=== PATIENT | male | born 1970 | race Caucasian/White ===

== ENCOUNTER 2017-05-25 19:02 | Emergency (ER) | payer OTHER, BC ==
[2017-05-25 19:15] VITALS: BP 106/73
[2017-05-25] MEDS ORDERED: OXYCODONE-ACETAMINOPHEN 5-325 MG TABLET PO ONE (19:24)
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
[2017-05-25] MEDS ORDERED: HYDROCODONE/ACETAMINOPHEN 5-325 MG 6 TAB/DSPK PO PRN (20:13)
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
--- NOTE | 2017-05-27 09:59 | RADIOLOGY REPORT (SQ) ---
EXAM DESCRIPTION: KNEE RIGHT 4 VIEWS COMPLETED DATE/TIME: 05/25/2017 7:43 pm REASON FOR STUDY: pain COMPARISON: 01/05/2008 NUMBER OF VIEWS: Four views. TECHNIQUE: AP, lateral, and both oblique radiographic images acquired of the right knee. LIMITATIONS: None. FINDINGS: MINERALIZATION: Normal. BONES: No acute fracture or dislocation. No worrisome bone lesions. No significant osteophytes. JOINT: No effusion. No chondrocalcinosis. OTHER: No other significant finding. IMPRESSION: NEGATIVE STUDY OF THE RIGHT KNEE. NO EXPLANATION FOR PAIN. TECHNICAL DOCUMENTATION: JOB ID: [id number] [employer]- All Rights Reserved
--- NOTE | 2017-05-27 14:02 | RADIOLOGY REPORT (SQ) ---
EXAM DESCRIPTION: HAND LEFT 3 VIEWS COMPLETED DATE/TIME: 05/25/2017 7:43 pm REASON FOR STUDY: injury COMPARISON: None. EXAM PARAMETERS: NUMBER OF VIEWS: Three views. TECHNIQUE: AP, lateral and oblique radiographic images acquired of the left hand. LIMITATIONS: None. FINDINGS: MINERALIZATION: Normal. BONES: No acute fracture or dislocation. No worrisome bone lesions. JOINTS: No effusions. SOFT TISSUES: No soft tissue swelling. No foreign body. OTHER: No other significant finding. IMPRESSION: NEGATIVE STUDY OF THE LEFT HAND. NO RADIOGRAPHIC EVIDENCE OF ACUTE INJURY. TECHNICAL DOCUMENTATION: JOB ID: [id number] [employer]- All Rights Reserved
--- NOTE | 2017-05-27 16:37 | RADIOLOGY REPORT (SQ) ---
EXAM DESCRIPTION: KNEE LEFT 4 VIEW COMPLETED DATE/TIME: 05/25/2017 7:43 pm REASON FOR STUDY: injury COMPARISON: None. FINDINGS: Four views left knee. Irregular lucency through the inferior pole of the patella consistent with nondisplaced mildly commin uted fracture. Overlying soft tissue swelling. Small joint effusion. No other fracture identified. Please see separately dictated report for right knee radiographs obtained on same date; patient tong hallman had left greater than right knee pain. TECHNICAL DOCUMENTATION: JOB ID: [id number]
== END 2017-05-25 21:00 | disposition home or self-care (01) ==
LOC: ER 19:02
DX: S82.045A Nondisplaced comminuted fracture of left patella, initial encounter for closed fracture (principal); T14.8 Other injury of unspecified body region; V23.4XXA Motorcycle driver injured in collision with car, pick-up truck or van in traffic accident, initial encounter; Y92.488 Other paved roadways as the place of occurrence of the external cause; F17.200 Nicotine dependence, unspecified, uncomplicated
CPT/HCPCS: 99283; 73130; 73562; 73564; L1830

== ENCOUNTER 2018-11-15 13:30 | Observation (INO) | payer BC ==
[2018-11-15] MEDS ORDERED: IPRATROPIUM/ALBUTEROL 0.5-2.5 MG/3 ML AMPUL NEB ONE (15:48)
[2018-11-15] MEDS ORDERED: ONDANSETRON HCL INJ/PF 4 MG/2 ML SDV IV ONE (15:49)
[2018-11-15] MEDS ORDERED: METHYLPREDNISOLONE INJ 125 MG/2 ML SDV IV ONE (15:49)
[2018-11-15] MEDS ORDERED: DOXYCYCLINE HYCLATE INJ 100 MG VIAL IV ONE ×2 (15:59→19:30)
--- NOTE | 2018-11-15 16:02 | ER Document Report ---
ED Medical Screen (RME) - General Chief Complaint: Abscess Stated Complaint: POSSIBLE ABSCESS Time Seen by Provider: 11/15/18 15:48 Notes: Patient is a 48-year-old male that presents to the emergency department for chief complaint of left knee abscess. Patient states this started as a small pimple a few days ago on Tuesday and it progressively worsened over the weekend, he went to see an urgent care which the press on it and it did drain some pus drainage, and was advised to come to the emergency department he denies having any fevers, chills, night sweats, nausea or vomiting. Denies pain in the knee joint itself. ROS: Other than noted above, the 12 point review of systems was reviewed with the patient and were negative, all pertinent findings are included in the HPI. PHYSICAL EXAMINATION: Vital signs reviewed. GENERAL: Well-appearing, well-nourished and in no acute distress. HEAD: Atraumatic, normocephalic. EYES: Pupils equal round extraocular movements intact, conjunctiva are normal. ENT: Nares patent NECK: Normal range of motion CV: Heart regular rate and rhythm LUNGS: No respiratory distress Musculoskeletal: The left knee is erythematous over the anterior portion, with purulent drainage from an abscess over the left patella, there is no joint pain with range of motion only pain across the top of the knee. No knee effusion appreciated. NEUROLOGICAL: Normal speech PSYCH: Normal mood, normal affect. MDM: Patient seen and examined for rapid initial assessment. Vital signs reviewed. A comprehensive ED assessment and evaluation of the patient, analysis of test results and completion of the medical decision making process will be conducted by additional ED providers. *Note is created using voice recognition software and may contain spelling, syntax or grammatical errors. TRAVEL OUTSIDE OF THE [place] IN LAST 30 DAYS: No - Related Data Allergies/Adverse Reactions: No Known Allergies Allergy (Verified 11/15/18 13:34) Past Medical History - Social History Chew tobacco use (# tins/day): No Frequency of alcohol use: None - Past Medical History Cardiac Medical History: Denies: Hx Coronary Artery Disease, Hx Heart Attack, Hx Hypertension Neurological Medical History: Denies: Hx Cerebrovascular Accident, Hx Migraine Endocrine Medical History: Denies: Hx Diabetes Mellitus Type 2 Renal/ Medical History: Denies: Hx Peritoneal Dialysis GI Medical History: Reports: Hx Gastroesophageal Reflux Disease Musculoskeltal Medical History: Denies Hx Muscle Spasm, Denies Hx Muscle Weakness, Denies Hx Musculoskeletal Deformity Traumatic Medical History: Denies: Hx Fractures Past Surgical History: Reports: Hx Orthopedic Surgery - back fusion - Immunizations Hx Diphtheria, Pertussis, Tetanus Vaccination: Yes Physical Exam - Vital signs Vitals: Temp Pulse BP Pulse Ox 98.9 F 84 112/56 L 99 11/15/18 14:20 11/15/18 14:20 11/15/18 14:20 11/15/18 14:20 Course - Vital Signs Vital signs: Temp Pulse Resp BP Pulse Ox 98.9 F 84 112/56 L 99 11/15/18 14:20 11/15/18 14:20 11/15/18 14:20 11/15/18 14:20
[2018-11-15 17:12] LABS: ABSOLUTE EOSINOPHILS # (AUTO) 0.3 10^3/uL (0.0-0.6); ABSOLUTE LYMPHOCYTES (AUTO) 2.2 10^3/uL (0.5-4.7); ABSOLUTE MONOCYTES (AUTO) 1.2 10^3/uL (0.1-1.4); ABSOLUTE NEUT (AUTO) 10.4 10^3/uL (1.7-8.2); BASOPHILS % (AUTO) 0.2 % (0-2); EOSINOPHILS % (AUTO) 2.4 % (0-6); HEMATOCRIT 39.4 % (37.9-51.0); HEMOGLOBIN 13.4 g/dL (13.5-17.0); LYMPHOCYTES % (AUTO) 15.6 % (13-45); MEAN CORPUSCULAR HEMOGLOBIN 29.9 pg (27.0-33.4); MEAN CORPUSCULAR HGB CONC 34.1 g/dL (32.0-36.0); MEAN CORPUSCULAR VOLUME 88 fl (80-97); MONOCYTES % (AUTO) 8.8 % (3-13); PLATELET COUNT 381 10^3/uL (150-450); RED BLOOD COUNT 4.49 10^6/uL (4.35-5.55); TOTAL CELLS COUNTED % (AUTO) 100 %; WHITE BLOOD COUNT 14.2 10^3/uL (4.0-10.5)
[2018-11-15 17:38] LABS: ANION GAP 9 (5-19); BLOOD UREA NITROGEN 14 mg/dL (7-20); CALCIUM 9.4 mg/dL (8.4-10.2); CARBON DIOXIDE 29 mmol/L (22-30); CHLORIDE 100 mmol/L (98-107); GLUCOSE 71 mg/dL (75-110); POTASSIUM 4.8 mmol/L (3.6-5.0); SODIUM 138.4 mmol/L (137-145)
--- NOTE | 2018-11-15 19:32 | ER Document Report ---
ED General - General Chief Complaint: Abscess Stated Complaint: POSSIBLE ABSCESS Time Seen by Provider: 11/15/18 15:48 Notes: 48-year-old male that presents to the emergency department for chief complaint of left knee abscess. Patient states this started as a small pimple a few days ago on Tuesday and it progressively worsened over the weekend, he went to see an urgent care which the press on it and it did drain some pus drainage, and was advised to come to the emergency department he denies having any fevers, chills, night sweats, nausea or vomiting. Denies pain in the knee joint itself. TRAVEL OUTSIDE OF THE [place] IN LAST 30 DAYS: No - Related Data Allergies/Adverse Reactions: No Known Allergies Allergy (Verified 11/15/18 13:34) Past Medical History - Social History Smoking Status: Current Every Day Smoker Chew tobacco use (# tins/day): No Frequency of alcohol use: None Family History: Reviewed & Not Pertinent Patient has suicidal ideation: No Patient has homicidal ideation: No - Past Medical History Cardiac Medical History: Denies: Hx Coronary Artery Disease, Hx Heart Attack, Hx Hypertension Neurological Medical History: Denies: Hx Cerebrovascular Accident, Hx Migraine Endocrine Medical History: Denies: Hx Diabetes Mellitus Type 2 Renal/ Medical History: Denies: Hx Peritoneal Dialysis GI Medical History: Reports: Hx Gastroesophageal Reflux Disease Musculoskeletal Medical History: Denies Hx Muscle Spasm, Denies Hx Muscle Weakness, Denies Hx Musculoskeletal Deformity Traumatic Medical History: Denies: Hx Fractures Past Surgical History: Reports: Hx Orthopedic Surgery - back fusion - Immunizations Hx Diphtheria, Pertussis, Tetanus Vaccination: Yes Review of Systems - Review of Systems Constitutional: See HPI EENT: No symptoms reported Cardiovascular: See HPI Respiratory: See HPI Gastrointestinal: See HPI Genitourinary: No symptoms reported Male Genitourinary: No symptoms reported Musculoskeletal: No symptoms reported Skin: See HPI Hematologic/Lymphatic: No symptoms reported Neurological/Psychological: No symptoms reported Physical Exam - Vital signs Vitals: Temp Pulse BP Pulse Ox 98.9 F 84 112/56 L 99 11/15/18 14:20 11/15/18 14:20 11/15/18 14:20 11/15/18 14:20 - Notes Notes: PHYSICAL EXAMINATION: Reviewed vital signs and charting by RN GENERAL: Alert, interacts well. No acute distress. HEAD: Normocephalic, atraumatic. EYES: Pupils equal, round.. Extraocular movements intact. EXTREMITIES: Moves all 4 extremities spontaneously. No edema, No cyanosis. NEUROLOGICAL: Alert and oriented. Normal speech. PSYCH: Normal affect, normal mood. SKIN: Warm, dry, left knee with edema, extremely erythematous lateral aspect of patella area of broken skin that is scabbed over with slow serosanguineous oozing, knee is hot to touch from mid thigh down to mid calf Course - Re-evaluation Re-evalutation: 11/15/18 19:46 48 male presents from urgent care for knee swelling consistent with cellulitis. Patient is able to move his knee does not complain of any joint pain in the knee. I contacted , surgical list on-call who came and looked at the gentleman his knee. Plan is to admit him and taken to the OR for incision and drainage - Vital Signs Vital signs: Temp Pulse Resp BP Pulse Ox 98.9 F 84 112/56 L 99 11/15/18 14:20 11/15/18 14:20 11/15/18 14:20 11/15/18 14:20 - Laboratory Result Diagrams: 11/15/18 16:49 11/15/18 16:49 Laboratory results interpreted by me: 11/15/18 11/15/18 16:49 16:49 WBC 14.2 H Hgb 13.4 L Absolute Neutrophils 10.4 H Glucose 71 L Discharge - Discharge Clinical Impression: Abscess Cellulitis Qualifiers: Site of cellulitis: extremity Site of cellulitis of extremity: lower extremity Laterality: left Qualified Code(s): L03.116 - Cellulitis of left lower limb Disposition: ADMITTED INPATIENT Admitting Provider: Surgicalist Unit Admitted: Medical Floor
[2018-11-15] MEDS ORDERED: VANCOMYCIN HCL INJ 1000 MG VIAL IV ONE (20:06)
[2018-11-15] MEDS ORDERED: LIDOCAINE 2% INJ-PF (20 MG/ML) 10 ML AMPUL ONE (20:12)
[2018-11-15] MEDS ORDERED: FENTANYL CITRATE INJ/PF 100 MCG/2 ML AMPUL ONE (20:12)
[2018-11-15] MEDS ORDERED: MIDAZOLAM 2 MG/2 ML INJ ONE (20:12)
[2018-11-15] MEDS ORDERED: PANTOPRAZOLE SODIUM 40 MG VIAL IV ONE (20:13)
[2018-11-15] MEDS ORDERED: PROPOFOL INJ 200 MG/20 ML VIAL IV ONE (20:13)
[2018-11-15] MEDS ORDERED: LIDOCAINE 0.5% INJ-PF (5 MG/ML) 50 ML SDV ONE (20:24)
--- NOTE | 2018-11-15 20:43 | HISTORY AND PHYSICAL E ---
History and Physical NAME: KULWINDER JACKSON : 1970 AGE: 48Y ADMITTED: 11/15/2018 ROOM: ED39 CHIEF COMPLAINT: Left knee pains. HISTORY OF PRESENT ILLNESS: This is a 48-year-old male who noted a pimple on the left knee about four days ago. This was followed by swelling and pain, but denies fever or chills. He said it drained purulent material in the past couple of days, and he would squeeze it and he will get some relief. PAST HISTORY: Back fusion surgery. SOCIAL HISTORY: Smokes 1-1/2 packs a day and smokes marijuana. Denies alcohol use. FAMILY HISTORY: Strong for heart disease. No history of diabetes in both parents. REVIEW OF SYSTEMS: Denies any fever, chills, diarrhea, constipation, chest pain, or cough. Complaint of pains in the left knee as well as in the left groin area. There are also pains toward the left lateral calf area. He has some difficulty walking because of pains in the left knee. PHYSICAL EXAMINATION: GENERAL: Well-developed, well-nourished 48-year-old male, alert and oriented. Complains of pains in the left knee and left groin. HEENT: Neck is supple, no thyromegaly. LUNGS: Clear. HEART: Regular sinus rhythm. ABDOMEN: Soft, nontender. EXTREMITIES: Palpable tenderness of the left groin lymph node site. He has red swelling along the anterior knee area with mild fluctuation going laterally with more discoloration. This is very tender. There is a red streak from the left knee in the medial aspect of the left groin area. There is also reddish discoloration from the knee down to the mid left lateral lower leg area. Left leg is swollen compared to the right. Palpable pulses. IMPRESSION: 1. CELLULITIS OF THE LEFT KNEE WITH STARTING ABSCESS. 2. LYMPHANGITIS. PLAN: The patient is to have I and D of the left knee area in the OR, and start IV antibiotics. DICTATING PHYSICIAN: PRAVEEN WADE M.D. [id number] PHY#: [id number] ID: [id number] JOB#: [id number] ACCT: [id number] cc: >
[2018-11-15] MEDS ORDERED: DEXMEDETOMIDINE INJ 80 MCG/20 ML VIAL IV ONE (20:48)
[2018-11-15] MEDS ORDERED: DIPHENHYDRAMINE HCL 50 MG/ML VIAL IV PRN (21:10)
[2018-11-15] MEDS ORDERED: MEPERIDINE HCL/PF INJ 25 MG/1 ML DISP.SYRIN IV PRN (21:10)
[2018-11-15] MEDS ORDERED: MORPHINE SULFATE 10 MG/ML INJ IV PRN (21:10)
[2018-11-15] MEDS ORDERED: ONDANSETRON HCL INJ/PF 4 MG/2 ML SDV IV PRN (21:10)
[2018-11-15] MEDS ORDERED: OXYCODONE-ACETAMINOPHEN 5-325 MG TABLET PO PRN ×2 (21:10)
[2018-11-15] MEDS ORDERED: FENTANYL CITRATE INJ/PF 100 MCG/2 ML AMPUL IV PRN ×3 (21:10)
[2018-11-15] MEDS ORDERED: PROMETHAZINE HCL INJ 25 MG/1 ML VIAL IV PRN ×2 (21:10)
[2018-11-15] MEDS ORDERED: KETOROLAC TROMETHAMINE INJ/PF 30 MG/1 ML SDV ONE (21:44)
--- NOTE | 2018-11-15 21:48 | OPERATIVE REPORT E ---
Operative Report NAME: KULWINDER JACKSON : 1970 AGE: 48Y DATE OF SURGERY: 11/15/2018 ROOM: ED39 PREOPERATIVE DIAGNOSIS: ABSCESS OF THE LEFT KNEE. POSTOPERATIVE DIAGNOSIS: ABSCESS OF THE LEFT KNEE. PROCEDURE: Incision and drainage of abscess left knee. SURGEON: PRAVEEN WADE M.D. ANESTHESIA: Local, MAC. INDICATION: This is a 48-year-old male who had about a 4 day duration of swelling and redness with some drainage of purulent material from the left knee. The past 2 days he said he would squeeze it to get some relief. DESCRIPTION OF PROCEDURE: After adequate IV sedation the patient was placed in the supine position and the left knee prepped and draped in the usual sterile fashion. Local anesthesia infiltrated around the abscess site on the mid left knee anterior aspect. A horizontal incision was made about 2 cm long. A small amount of purulent material extruded out. Some specimen was sent for C and S. A small cruciate incision made at the middle to about 1-1/2 inch long. The horizontal incision extended laterally to another 1 cm. There was some necrotic subcu area that was debrided with the use of cautery. Further hemostasis obtained with cautery. Next a small abscess cavity was then pulse lavaged with a liter of saline. The wound appears relatively clean and this was then packed with 0.25 inch Iodoform gauze. Needle, instrument, and sponge counts were all correct. Estimated blood loss was about 5 mL. The patient then brought to the recovery room in satisfactory condition. DICTATING PHYSICIAN: PRAVEEN WADE M.D. [id number] PHY#: [id number] ID: [id number] JOB#: [id number] ACCT: [id number] cc:PRAVEEN WADE M.D. >
[2018-11-15] MEDS ORDERED: KETOROLAC TROMETHAMINE INJ/PF 30 MG/1 ML SDV IV PRN (21:51)
[2018-11-15] MEDS ORDERED: NORMAL SALINE 1000 ML 1,000 ML IV PRN (21:52)
--- NOTE | 2018-11-15 22:57 | EKG REPORT ---
SEVERITY:- NORMAL ECG - SINUS RHYTHM : Confirmed by: Smita Larry 15-Nov-2018 22:57:04
[2018-11-15] MEDS: VANCOMYCIN HCL 1,000 MG in DEXTROSE 5%-WATER 250 ML IV SCH (23:22)
[2018-11-16 02:32] VITALS: BP 115/69
[2018-11-16] MEDS: VANCOMYCIN HCL 1,000 MG in DEXTROSE 5%-WATER 250 ML IV SCH (06:20)
--- NOTE | 2018-11-16 14:22 | DISCHARGE SUMMARY E ---
Discharge Summary NAME: KULWINDER JACKSON : 1970 AGE: 48Y ADMITTED: 11/15/2018 DISCHARGED: 11/16/2018 FINAL DIAGNOSIS: ABSCESS OF THE LEFT KNEE. PROCEDURE DONE: Incision and drainage of abscess of the left knee 11/15/2018. SURGEON: Jarret Armstrong MD HOSPITAL COURSE: This is a 48-year-old male complaining of pains in the left knee for the past 4 to 5 days. He said it started as a pimple that he scratched. He was noted to have an abscess of the left knee and taken to the OR on 11/15/18 for incision and drainage. Postoperatively, he did very well. The packing in the wound was removed on 11/16/18 and placed a wet-to-dry dressing. He was discharged improved on 11/16/18 with a final diagnosis of abscess of the left knee. PLAN: Continue with the clindamycin 300 mg p.o. 3 times a day for 7 days. Patient to remove the dressing tomorrow and start showering and wash the wound with soap and water on a daily basis. Patient to be followed up in the surgical clinic in 2 weeks or earlier if there is any increasing redness or purulent discharge or fever. DICTATING PHYSICIAN: JARRET ARMSTRONG M.D. [id number] [facility]#: [id number] ID: [id number] JOB#: [id number] ACCT: [id number] cc:JARRET ARMSTRONG M.D. [facility],
== END 2018-11-16 08:30 | disposition home or self-care (01) ==
LOC: ER 13:30 → EH 20:05 → INTOOBSV 20:05 → 2N 22:11
PROVIDERS: ATTEND Surgery
PROC: 0J9P0ZZ Drainage of Left Lower Leg Subcutaneous Tissue and Fascia, Open Approach (ICD-10-PCS; principal; 2018-11-15 21:05)
DX: L02.416 Cutaneous abscess of left lower limb (principal); F17.210 Nicotine dependence, cigarettes, uncomplicated
CPT/HCPCS: 93005; 99284; 36415; 87070; 87205; 85025; 87075; 87077; 80048; 87186; 93010; 10060; A6266; J2250; J3010; J3490 ×3; J1885; J7060; J7030; J2704; J3370 ×2; 1320